=== PATIENT | female | born 1960 | race Hispanic/Latino ===

== ENCOUNTER 2021-09-30 05:56 | Day surgery (SDC) | payer MEDICARE ==
[2021-09-28 15:27] LABS: APPEARANCE,URINE Clear (CLEAR); BILIRUBIN,URINE Negative (NEGATIVE); COLOR,URINE Yellow (YELLOW); GLUCOSE, URINE (UA) Negative (NEGATIVE); KETONES,URINE Negative (NEGATIVE); LEUKOCYTE ESTERASE ,URINE Moderate (NEGATIVE); NITRATE,URINE Negative (NEGATIVE); OCCULT BLOOD,URINE Trace (NEGATIVE); PROTEIN,URINE POS 2+ mg/dL (NEGATIVE); UROBILINOGEN,URINE 0.2 mg/dL (0.2-1.0)
[2021-09-28 15:55] LABS: BACTERIA,URINE Few /HPF (None Seen); RBC,URINE 0-1 /HPF (0-1)
[2021-09-28 15:56] LABS: SQUAMOUS EPITHELIAL CELL,UR Rare /HPF (0-2)
[2021-09-28 16:07] LABS: BASOPHILS % (AUTO) 0.7 % (0.0-5.0); EOSINOPHILS % (AUTO) 4.4 % (0.0-8.0); HEMATOCRIT 35.8 % (36-48); LYMPHOCYTES % (AUTO) 14.9 % (21.0-51.0); MEAN CORPUSCULAR HGB CONC 30.7 g/dL (32.0-36.0); MEAN CORPUSCULAR VOLUME 104.1 fL (79-99); MONOCYTES % (AUTO) 8.2 % (3.0-13.0); NEUTROPHILS % (AUTO) 71.4 % (40.0-77.0); PLATELET COUNT (AUTO) 222 K/uL (130-400); RED BLOOD CELL COUNT(AUTO) 3.44 MIL/uL (4.00-5.50); RED CELL DISTRIBUTION WIDTH 13.7 % (11.0-15.5); WHITE BLOOD COUNT (AUTO) 10.4 K/uL (4.8-10.8)
[2021-09-28 16:25] LABS: INR 1.12 (0.85-1.15); PROTHROMBIN TIME 12.1 SEC (9.6-11.6)
[2021-09-28 16:27] LABS: PARTIAL THROMBOPLASTIN TIME 29.3 SEC (26.3-35.5)
[2021-09-28 16:34] LABS: POTASSIUM 4.3 mmol/L (3.5-5.1)
[2021-09-28 17:04] LABS: CREATININE 12.9 mg/dL (0.5-1.5)
[2021-09-29 13:28] VITALS: BP 114/78
[~2021-09-30] VITALS: Ht 147.3 cm; Wt 53.5 kg
[2021-09-30] VITALS (11 sets, daily range): BP systolic 101–133; BP diastolic 61–88
[~2021-09-30 05:56] MED LIST: AEC81 PO; CALC0.5C11 PO; CINA60TA4 PO; CLOP75TA32 PO; DiphenhydrAMINE HCL 50 MG/ML VIAL IVP PRN; HYDR5TAB14 PO; LEVO50 PO; MIDO10TA PO; MONT-39 PO; OMEP40CA21 PO; SOD250TA2 PO
[2021-09-30] MEDS ORDERED: 0.9%NACL 1000ML 1,000 ML IV ONE (06:25)
[2021-09-30] MEDS ORDERED: BIVALIRUDIN 250 MG/VIAL IV ONE (07:12)
[2021-09-30] MEDS ORDERED: LIDOCAINE HCL 400MG/20ML VIAL ONE (07:12)
[2021-09-30] MEDS ORDERED: IOHEXOL 350 MG/ML 100ML INFUS..BTL IV ONE (07:12)
[2021-09-30] MEDS ORDERED: HEPARIN 10,000 UNIT/10ML (1,000 UNIT/ML) VIAL ONE (07:12)
[2021-09-30] MEDS ORDERED: NITROGLYCERIN 50MG VIAL IV ONE (07:12)
[2021-09-30] MEDS ORDERED: IODIXANOL 320 MG/ML 100 ML VIAL ONE (07:19)
[2021-09-30] MEDS: SOLU-MEDROL 125MG VIAL IVP PRN ×3 (07:25→12:14)
[2021-09-30] MEDS ORDERED: MIDAZOLAM HCL 1 MG/ML 2ML VIAL ONE (07:48)
[2021-09-30] MEDS ORDERED: FENTANYL CITRATE PF 50 MCG/1 ML 2ML VIAL ONE (07:48)
[2021-09-30] MEDS ORDERED: 0.9%NACL 1000ML 1,000 ML IV SCH (08:00)
[2021-09-30] MEDS ORDERED: 0.9%NACL 1000ML 500 ML IV SCH (09:30)
[2021-09-30] MEDS ORDERED: DEXTROSE 50%-WATER 50 ML DISP.SYRIN IV PRN (09:30)
[2021-09-30] MEDS ORDERED: GLUCAGON 1MG KIT 1 MG ML IM PRN (09:30)
[2021-09-30] MEDS ORDERED: EPTIFIBATIDE 2 MG/ML 10 ML VIAL IVP ONE (11:10)
[2021-09-30] MEDS ORDERED: ACETAMINOPHEN 325 MG TAB PO ONE (15:00)
[2021-11-16] MEDS ORDERED: SOD250TA2 PO (15:14)
== END 2021-09-30 15:15 | disposition home or self-care (01) ==
LOC: DAH 05:56
PROVIDERS: ATTEND Student in an Organized Health Care Education/Training Program
DX: I25.10 Atherosclerotic heart disease of native coronary artery without angina pectoris (principal); I70.213 Atherosclerosis of native arteries of extremities with intermittent claudication, bilateral legs; I25.82 Chronic total occlusion of coronary artery; I34.2 Nonrheumatic mitral (valve) stenosis; E78.2 Mixed hyperlipidemia; I95.3 Hypotension of hemodialysis; I11.0 Hypertensive heart disease with heart failure; I50.42 Chronic combined systolic (congestive) and diastolic (congestive) heart failure; E78.5 Hyperlipidemia, unspecified; Z79.82 Long term (current) use of aspirin; Z79.01 Long term (current) use of anticoagulants; Z86.73 Personal history of transient ischemic attack (TIA), and cerebral infarction without residual deficits; Z79.899 Other long term (current) drug therapy; Z98.890 Other specified postprocedural states; Z88.3 Allergy status to other anti-infective agents
CPT/HCPCS: 36415; 71045; 75716; 80048; 81001; 82948; 85025; 85610; 85730; 87088; 93005; 93458; A4215; A4216; A4221; A4222; A4223 ×3; A4606; A4663; C1760; C1894 ×3; J1200; J1327; J1644 ×2; J2250; J2930; J3010; J3490 ×2; J7030; Q9965; Q9967; 99156; 99157; J0583

== ENCOUNTER → 2021-11-30 | Outpatient (CLI) | payer MEDICARE ==
[~2021-11-30] MED LIST changes: +CEFAZOLIN SODIUM 1 GM VIAL IVP ONE; -DiphenhydrAMINE HCL 50 MG/ML VIAL IVP PRN; -MONT-39 PO
== END | disposition home or self-care (01) ==
LOC: DAH 10:00 → EDSTATUS 12-01 21:24
PROVIDERS: ATTEND Thoracic Surgery (Cardiothoracic Vascular Surgery)
DX: Z01.812 Encounter for preprocedural laboratory examination (principal); I25.10 Atherosclerotic heart disease of native coronary artery without angina pectoris; I34.2 Nonrheumatic mitral (valve) stenosis; Z20.822 Contact with and (suspected) exposure to COVID-19
CPT/HCPCS: 87635